=== PATIENT | female | born 1995 | race Caucasian/White ===

== ENCOUNTER 2017-06-08 | Emergency (ER) | END 2017-06-08 20:49 | disposition home or self-care (01) ==

== ENCOUNTER 2017-06-23 10:20 | Emergency (ER) | payer OTHER ==
[~2017-06-23] VITALS: Ht 177.8 cm; Wt 56.7 kg
[~2017-06-23 10:20] MED LIST: ALBU90OI INH; AMOCLA250S PO; AMOX500 PO; AMOX50SU PO; ATOM40; ATOM40 PO; AZIT200SU PO; AZIT250 PO; Amoxicillin500 MG PO; CIPRO500 MG PO; CODACEE120 PO; COMPAZINE10 MG PO; CRUTCH2 USE; Cheratussin AC118 ML PO; Cipro500 MG PO; DIPH25 PO; FLUO10 PO; HYDACE5 PO; HYDHCL25 PO; HYOS.125 SL; IBUP600 PO; LAVAP17G PO; LORA2 PO; METO10 PO; NEOPOLHCSU OT; Naprosyn500 MG PO; OMEPRAZOLE MAGN20 MG PO; ONDA4 PO; PENVK500 PO; PROC10 PO; PROM25 PO; Percocet 5-3251 EACH PO; RXCODACET PO; RXNEOPOLHC AS; TRAZ150T57 PO; Ultram50 MG PO; XULANE PATCH1 EACH TD; Zithromax250 MG PO; Zofran Odt4 MG SL; intuniv
== END 2017-06-23 12:50 | disposition home or self-care (01) ==
LOC: ER 10:20
DX: F41.9 Anxiety disorder, unspecified (principal); F17.200 Nicotine dependence, unspecified, uncomplicated
CPT/HCPCS: 96374; 96375; 96376; 99283; J1200; J1630

== ENCOUNTER 2017-09-28 09:40 | Emergency (ER) | payer OTHER ==
[~2017-09-28] VITALS: Ht 208.3 cm; Wt 54.4 kg
[2017-09-28] MEDS ORDERED: METR250 PO (09:57)
[2017-09-28 10:12] LABS: BASOPHILS ABSOLUTE AUTO 0.04 K/mm3 (0.00-0.23); BASOPHILS PERCENT AUTO 0 % (0-2); EOSINOPHILS ABSOLUTE AUTO 0.14 K/mm3 (0.00-0.68); EOSINOPHILS PERCENT AUTO 1 % (0-6); Hemoglobin 13.5 g/dL (11.5-16.0); IMMATURE GRAN ABSOLUTE AUTO 0.04 K/mm3 (0.00-0.10); IMMATURE GRAN PERCENT AUTO 0 % (0-1); LYMPHOCYTES ABSOLUTE AUTO 1.72 K/mm3 (0.84-5.20); LYMPHOCYTES PERCENT AUTO 16 % (21-46); MONOCYTES ABSOLUTE AUTO 0.47 K/mm3 (0.16-1.47); MONOCYTES PERCENT AUTO 4 % (4-13); Mean Corpuscular HGB 30.5 pg (26.0-34.0); Mean Corpuscular HGB Conc 33.8 g/dL (31.5-36.5); Mean Corpuscular Volume 91 fL (80-100); Mean Platelet Volume 10.1 fL (9.1-12.4); NEUTROPHILS ABSOLUTE AUTO 8.59 K/mm3 (1.96-9.15); NEUTROPHILS PERCENT AUTO 78 % (41-73); Platelet Count 337 K/mm3 (150-400); RDW Coefficient Variation 12.8 % (11.7-14.2); RDW Standard Deviation 42.5 fL (35.1-46.3); Red Blood Cell Count 4.42 M/mm3 (3.80-5.20)
[2017-09-28 10:15] LABS: Source, Urine Clean Catch
[2017-09-28 10:23] LABS: Bilirubin, Urine Neg (Neg); Blood, Urine 5+ (Neg); Glucose Qualitative, Urine Neg (Neg); Ketones, Urine 1+ (Neg); Leukocyte Esterase, Urine 2+ (Neg); Nitrite, Urine Neg (Neg); Protein, Urine 2+ (Neg); Urobilinogen, Urine NORM (Normal)
[2017-09-28 10:23] LABS: Alanine Aminotransfer (ALT/SGP 23 U/L (12-78); Albumin, Blood 4.1 g/dL (3.4-5.0); Albumin/Globulin Ratio 1.3 (0.8-1.8); Alk Phos 68 U/L (50-136); Anion Gap 11 mmol/L (6-16); Aspartate Aminotrans (AST/SGOT 17 U/L (12-37); Bilirubin, Total 0.4 mg/dL (0.1-1.0); Blood Urea Nitrogen 10 mg/dL (8-24); Bun/Creatinine Ratio 14.2 (12.0-20.0); CO2, Blood 22 mmol/L (21-32); Calcium, Blood 8.8 mg/dL (8.5-10.1); Chloride, Blood 109 mmol/L (98-108); Creatinine, Blood 0.71 mg/dL (0.40-1.00); Globulin, Blood 3.1 g/dL (2.2-4.0); Glomerular Filtration Rate >60 (60-); Glucose, Blood 157 mg/dL (70-99); Sodium, Blood 142 mmol/L (136-145); Total Protein, Blood 7.2 g/dL (6.4-8.2)
[2017-09-28 10:28] LABS: Acetaminophen, Random <2.0 ug/mL (10.0-30.0); Salicylate <1.7 mg/dL (2.8-20.0)
[2017-09-28 10:40] LABS: U Amphetamine Screen Not Detected; U Barbituate Screen Not Detected; U Benzodiazapine Screen Not Detected; U Buprenorphine Screen Not Detected; U Cannabinoids Screen DETECTED; U Cocaine Screen Not Detected; U Methadone Screen Not Detected; U Methamphetamine Screen Not Detected; U Opiates Screen Not Detected; U Oxycodone Screen Not Detected; U Phencyclidine Screen Not Detected; U Propoxyphene Screen Not Detected
[2017-09-28 10:44] LABS: Appearance, Urine Cloudy (Clear); Color, Urine Yellow (P-Yellow)
[2017-09-28 10:45] LABS: Bacteria Few /hpf; Mucus Light (0-Heavy); Red Blood Cells, Urine TNTC /hpf (0-2); Squamous Epithelial Cells Few /hpf (Few)
== END 2017-09-28 12:16 | disposition home or self-care (01) ==
LOC: ER 09:40
PROVIDERS: Emergency Medicine
DX: R11.2 Nausea with vomiting, unspecified (principal); E86.0 Dehydration; F41.9 Anxiety disorder, unspecified; E87.6 Hypokalemia; F17.200 Nicotine dependence, unspecified, uncomplicated; Z79.899 Other long term (current) drug therapy
CPT/HCPCS: 36415; 80053; 81001; 81025; 83690; 85025; 87086; 96361; 96374; 96375; 99283; G0480; J2060; J2405; J2765; J7030

== ENCOUNTER 2018-11-21 15:18 | Emergency (ER) | payer OTHER ==
[~2018-11-21] VITALS: Ht 170.2 cm; Wt 56.2 kg
[~2018-11-21 15:18] MED LIST changes: +METR250 PO
[2018-11-21 16:15] LABS: Source, Urine Clean Catch
[2018-11-21 16:17] LABS: Bilirubin, Urine Neg (Neg); Blood, Urine 3+ (Neg); Glucose Qualitative, Urine Neg (Neg); Ketones, Urine 4+ (Neg); Leukocyte Esterase, Urine Neg (Neg); Nitrite, Urine Neg (Neg); Protein, Urine 2+ (Neg); Specific Gravity, Urine 1.025 (1.003-1.022); Urobilinogen, Urine NORM (Normal)
[2018-11-21 16:45] LABS: U Cannabinoids Screen DETECTED
[2018-11-21 16:46] LABS: U Amphetamine Screen Not Detected; U Barbituate Screen Not Detected; U Benzodiazapine Screen Not Detected; U Buprenorphine Screen Not Detected; U Cocaine Screen Not Detected; U Methadone Screen Not Detected; U Methamphetamine Screen Not Detected; U Opiates Screen Not Detected; U Oxycodone Screen Not Detected; U Phencyclidine Screen Not Detected; U Propoxyphene Screen Not Detected
[2018-11-21 16:48] LABS: BASOPHILS ABSOLUTE AUTO 0.06 K/mm3 (0.00-0.23); BASOPHILS PERCENT AUTO 0 % (0-2); EOSINOPHILS ABSOLUTE AUTO 0.07 K/mm3 (0.00-0.68); EOSINOPHILS PERCENT AUTO 1 % (0-6); Hematocrit 38.7 % (33.0-51.0); Hemoglobin 13.3 g/dL (11.5-16.0); IMMATURE GRAN ABSOLUTE AUTO 0.04 K/mm3 (0.00-0.10); IMMATURE GRAN PERCENT AUTO 0 % (0-1); LYMPHOCYTES ABSOLUTE AUTO 2.06 K/mm3 (0.84-5.20); LYMPHOCYTES PERCENT AUTO 13 % (21-46); MONOCYTES PERCENT AUTO 4 % (4-13); Mean Corpuscular HGB 31.4 pg (26.0-34.0); Mean Corpuscular HGB Conc 34.4 g/dL (31.5-36.5); Mean Corpuscular Volume 92 fL (80-100); Mean Platelet Volume 10.9 fL (9.1-12.4); NEUTROPHILS PERCENT AUTO 82 % (41-73); Platelet Count 350 K/mm3 (150-400); RDW Coefficient Variation 12.4 % (11.7-14.2); Red Blood Cell Count 4.23 M/mm3 (3.80-5.20); White Blood Cell Count 15.33 K/mm3 (4.00-11.30)
[2018-11-21 17:06] LABS: Alanine Aminotransfer (ALT/SGP 18 U/L (12-78); Albumin/Globulin Ratio 1.1 (0.8-1.8); Alk Phos 50 U/L (50-136); Anion Gap 9 mmol/L (6-16); Aspartate Aminotrans (AST/SGOT 24 U/L (12-37); Bilirubin, Total 0.6 mg/dL (0.1-1.0); Blood Urea Nitrogen 9 mg/dL (8-24); Bun/Creatinine Ratio 15.6 (12.0-20.0); CO2, Blood 21 mmol/L (21-32); Calcium, Blood 9.4 mg/dL (8.5-10.1); Chloride, Blood 107 mmol/L (98-108); Creatinine, Blood 0.58 mg/dL (0.40-1.00); Globulin, Blood 3.6 g/dL (2.2-4.0); Glomerular Filtration Rate >60 (60-); Glucose, Blood 122 mg/dL (70-99); Potassium, Blood 3.7 mmol/L (3.5-5.5); Sodium, Blood 137 mmol/L (136-145); Total Protein, Blood 7.6 g/dL (6.4-8.2)
[2018-11-21 17:24] LABS: Appearance, Urine Hazy (Clear); Color, Urine Yellow (P-Yellow)
[2018-11-21 17:30] LABS: Beta HCG, Quantitative, Serum 46599 mIU/mL (0-3)
[2018-11-21 17:35] LABS: Squamous Epithelial Cells Mod /hpf (Few)
[2018-11-21 17:36] LABS: Bacteria Mod /hpf; Mucus Mod (0-Heavy)
[2019-02-01] MEDS ORDERED: ONDA4ODT (12:22)
== END 2018-11-21 19:07 | disposition home or self-care (01) ==
LOC: ER 15:18
PROVIDERS: Physician Assistant
DX: O99.341 Other mental disorders complicating pregnancy, first trimester (principal); F41.9 Anxiety disorder, unspecified; O99.89 Other specified diseases and conditions complicating pregnancy, childbirth and the puerperium; R10.30 Lower abdominal pain, unspecified; O99.331 Smoking (tobacco) complicating pregnancy, first trimester; F17.200 Nicotine dependence, unspecified, uncomplicated; Z3A.12 12 weeks gestation of pregnancy
CPT/HCPCS: 36415; 76801; 80053; 81001; 81025; 84702; 85025; 86900; 86901; 87077; 87086; 87186; 96372; 99283; 99284-25; A9270; J3230

== ENCOUNTER → 2018-12-24 | Outpatient (CLI) | payer OTHER ==
[~2018-12-24] MED LIST changes: +CEPH500 PO; +ONDA4ODT; +ONDA4ODT MM; +UNISOM25 MG PO
== END | disposition home or self-care (01) ==
LOC: LAB EV 09:08 → LAB SHORT 09:08
DX: J02.9 Acute pharyngitis, unspecified (principal)
CPT/HCPCS: 87081

== ENCOUNTER 2018-12-25 18:45 | Emergency (ER) | payer OTHER ==
[~2018-12-25] VITALS: Ht 170.2 cm; Wt 56.7 kg
[~2018-12-25 18:45] MED LIST changes: -CEPH500 PO; -ONDA4ODT; -ONDA4ODT MM; -UNISOM25 MG PO
[2018-12-25] MEDS ORDERED: UNISOM25 MG PO (18:53)
[2018-12-25] MEDS ORDERED: ONDA4ODT MM (18:53)
[2018-12-25 19:12] LABS: Source, Urine Clean Catch
[2018-12-25 19:14] LABS: Bilirubin, Urine Neg (Neg); Blood, Urine 4+ (Neg); Glucose Qualitative, Urine Neg (Neg); Ketones, Urine 4+ (Neg); Leukocyte Esterase, Urine 1+ (Neg); Nitrite, Urine Neg (Neg); Protein, Urine 2+ (Neg); Specific Gravity, Urine 1.025 (1.003-1.022); Urobilinogen, Urine NORM (Normal)
[2018-12-25 19:20] LABS: Appearance, Urine Clear (Clear); Color, Urine Yellow (P-Yellow)
[2018-12-25 19:22] LABS: Bacteria Many /hpf; Mucus Light (0-Heavy); Squamous Epithelial Cells Few /hpf (Few)
[2018-12-25 20:17] LABS: BASOPHILS ABSOLUTE AUTO 0.03 K/mm3 (0.00-0.23); BASOPHILS PERCENT AUTO 0 % (0-2); EOSINOPHILS ABSOLUTE AUTO 0.14 K/mm3 (0.00-0.68); EOSINOPHILS PERCENT AUTO 1 % (0-6); Hematocrit 33.1 % (33.0-51.0); Hemoglobin 10.8 g/dL (11.5-16.0); IMMATURE GRAN ABSOLUTE AUTO 0.07 K/mm3 (0.00-0.10); IMMATURE GRAN PERCENT AUTO 0 % (0-1); LYMPHOCYTES ABSOLUTE AUTO 0.97 K/mm3 (0.84-5.20); LYMPHOCYTES PERCENT AUTO 6 % (21-46); MONOCYTES ABSOLUTE AUTO 0.73 K/mm3 (0.16-1.47); MONOCYTES PERCENT AUTO 5 % (4-13); Mean Corpuscular HGB 30.9 pg (26.0-34.0); Mean Corpuscular HGB Conc 32.6 g/dL (31.5-36.5); Mean Corpuscular Volume 95 fL (80-100); Mean Platelet Volume 9.9 fL (9.1-12.4); NEUTROPHILS PERCENT AUTO 88 % (41-73); Platelet Count 273 K/mm3 (150-400); RDW Coefficient Variation 13.2 % (11.7-14.2); RDW Standard Deviation 45.1 fL (35.1-46.3); White Blood Cell Count 15.84 K/mm3 (4.00-11.30)
[2018-12-25 20:48] LABS: Alanine Aminotransfer (ALT/SGP 13 U/L (12-78); Albumin, Blood 3.2 g/dL (3.4-5.0); Albumin/Globulin Ratio 0.9 (0.8-1.8); Alk Phos 55 U/L (50-136); Anion Gap 10 mmol/L (6-16); Aspartate Aminotrans (AST/SGOT 9 U/L (12-37); Bilirubin, Total 0.5 mg/dL (0.1-1.0); Blood Urea Nitrogen 8 mg/dL (8-24); Bun/Creatinine Ratio 13.9 (12.0-20.0); CO2, Blood 21 mmol/L (21-32); Calcium, Blood 8.6 mg/dL (8.5-10.1); Chloride, Blood 106 mmol/L (98-108); Creatinine, Blood 0.58 mg/dL (0.40-1.00); Globulin, Blood 3.5 g/dL (2.2-4.0); Glomerular Filtration Rate >60 (60-); Glucose, Blood 82 mg/dL (70-99); Potassium, Blood 3.5 mmol/L (3.5-5.5); Sodium, Blood 137 mmol/L (136-145); Total Protein, Blood 6.7 g/dL (6.4-8.2)
[2018-12-25 21:04] LABS: Beta HCG, Quantitative, Serum 17384 mIU/mL (0-3)
[2018-12-25] MEDS ORDERED: CEPH500 PO (21:21)
[2019-02-01] MEDS ORDERED: ONDA4ODT (12:22)
== END 2018-12-25 21:55 | disposition home or self-care (01) ==
LOC: ER 18:45
PROVIDERS: Physician Assistant
DX: O23.42 Unspecified infection of urinary tract in pregnancy, second trimester (principal); Z87.891 Personal history of nicotine dependence; Z79.899 Other long term (current) drug therapy; Z3A.17 17 weeks gestation of pregnancy
CPT/HCPCS: 76815; 80053; 81001; 84702; 85025; 86900; 86901; 87077; 87086; 87186; 99284-25

== ENCOUNTER 2019-01-12 20:08 | Emergency (ER) | payer OTHER ==
[~2019-01-12] VITALS: Ht 170.2 cm; Wt 58.1 kg
[~2019-01-12 20:08] MED LIST changes: +CEPH500 PO; +ONDA4ODT MM; +UNISOM25 MG PO
[2019-01-12 21:18] LABS: BASOPHILS ABSOLUTE AUTO 0.08 K/mm3 (0.00-0.23); BASOPHILS PERCENT AUTO 1 % (0-2); EOSINOPHILS ABSOLUTE AUTO 0.23 K/mm3 (0.00-0.68); EOSINOPHILS PERCENT AUTO 2 % (0-6); Hematocrit 36.4 % (33.0-51.0); Hemoglobin 11.9 g/dL (11.5-16.0); IMMATURE GRAN ABSOLUTE AUTO 0.05 K/mm3 (0.00-0.10); IMMATURE GRAN PERCENT AUTO 0 % (0-1); LYMPHOCYTES ABSOLUTE AUTO 2.22 K/mm3 (0.84-5.20); LYMPHOCYTES PERCENT AUTO 18 % (21-46); MONOCYTES ABSOLUTE AUTO 0.68 K/mm3 (0.16-1.47); MONOCYTES PERCENT AUTO 5 % (4-13); Mean Corpuscular HGB 31.2 pg (26.0-34.0); Mean Corpuscular HGB Conc 32.7 g/dL (31.5-36.5); Mean Corpuscular Volume 95 fL (80-100); Mean Platelet Volume 10.1 fL (9.1-12.4); NEUTROPHILS ABSOLUTE AUTO 9.39 K/mm3 (1.96-9.15); NEUTROPHILS PERCENT AUTO 74 % (41-73); Platelet Count 327 K/mm3 (150-400); RDW Coefficient Variation 13.3 % (11.7-14.2); RDW Standard Deviation 46.9 fL (35.1-46.3); Red Blood Cell Count 3.82 M/mm3 (3.80-5.20); White Blood Cell Count 12.65 K/mm3 (4.00-11.30)
[2019-01-12 21:36] LABS: Source, Urine Clean Catch
[2019-01-12 21:38] LABS: Alanine Aminotransfer (ALT/SGP 17 U/L (12-78); Albumin, Blood 3.6 g/dL (3.4-5.0); Albumin/Globulin Ratio 0.9 (0.8-1.8); Alk Phos 63 U/L (50-136); Anion Gap 5 mmol/L (6-16); Aspartate Aminotrans (AST/SGOT 14 U/L (12-37); Bilirubin, Total 0.5 mg/dL (0.1-1.0); Blood Urea Nitrogen 8 mg/dL (8-24); Bun/Creatinine Ratio 13.6 (12.0-20.0); CO2, Blood 26 mmol/L (21-32); Calcium, Blood 8.7 mg/dL (8.5-10.1); Chloride, Blood 105 mmol/L (98-108); Creatinine, Blood 0.59 mg/dL (0.40-1.00); Globulin, Blood 3.8 g/dL (2.2-4.0); Glomerular Filtration Rate >60 (60-); Glucose, Blood 81 mg/dL (70-99); Potassium, Blood 3.1 mmol/L (3.5-5.5); Sodium, Blood 136 mmol/L (136-145); Total Protein, Blood 7.4 g/dL (6.4-8.2)
[2019-01-12 21:39] LABS: Appearance, Urine Clear (Clear); Bilirubin, Urine Neg (Neg); Blood, Urine 1+ (Neg); Color, Urine Amber (P-Yellow); Glucose Qualitative, Urine Neg (Neg); Ketones, Urine 1+ (Neg); Leukocyte Esterase, Urine 1+ (Neg); Nitrite, Urine Neg (Neg); Protein, Urine 2+ (Neg); Specific Gravity, Urine 1.025 (1.003-1.022); Urobilinogen, Urine 1+ (Normal)
[2019-01-12 21:48] LABS: Bacteria Many /hpf; Mucus Heavy ({null, 0-Heavy}); Red Blood Cells, Urine 0-2 /hpf (0-2); Squamous Epithelial Cells Few /hpf (Few)
[2019-02-01] MEDS ORDERED: ONDA4ODT (12:22)
== END 2019-01-13 00:17 | disposition home or self-care (01) ==
LOC: ER 20:08
PROVIDERS: Physician Assistant
DX: O99.89 Other specified diseases and conditions complicating pregnancy, childbirth and the puerperium (principal); R10.9 Unspecified abdominal pain; R55 Syncope and collapse; O99.342 Other mental disorders complicating pregnancy, second trimester; F41.9 Anxiety disorder, unspecified; F43.10 Post-traumatic stress disorder, unspecified; Z3A.20 20 weeks gestation of pregnancy; Z79.899 Other long term (current) drug therapy
CPT/HCPCS: 36415; 80053; 81001; 85025; 87086; 93005; 93010; 99284-25

== ENCOUNTER 2019-05-31 16:00 | Inpatient (IN) | payer OTHER ==
[~2019-05-31] VITALS: Ht 170.2 cm; Wt 67.7 kg
[~2019-05-31 16:00] MED LIST changes: +ONDA4ODT
[2019-05-31] MEDS ORDERED: ACETAMINOPHEN500 MG PO (16:47)
[2019-05-31 17:07] LABS: BASOPHILS ABSOLUTE AUTO 0.02 K/mm3 (0.00-0.23); BASOPHILS PERCENT AUTO 0 % (0-2); EOSINOPHILS ABSOLUTE AUTO 0.11 K/mm3 (0.00-0.68); EOSINOPHILS PERCENT AUTO 1 % (0-6); Hemoglobin 10.4 g/dL (11.5-16.0); IMMATURE GRAN ABSOLUTE AUTO 0.04 K/mm3 (0.00-0.10); IMMATURE GRAN PERCENT AUTO 0 % (0-1); LYMPHOCYTES ABSOLUTE AUTO 1.72 K/mm3 (0.84-5.20); LYMPHOCYTES PERCENT AUTO 16 % (21-46); MONOCYTES ABSOLUTE AUTO 0.73 K/mm3 (0.16-1.47); MONOCYTES PERCENT AUTO 7 % (4-13); Mean Corpuscular HGB 30.5 pg (26.0-34.0); Mean Corpuscular HGB Conc 33.5 g/dL (31.5-36.5); Mean Corpuscular Volume 91 fL (80-100); Mean Platelet Volume 10.1 fL (9.1-12.4); NEUTROPHILS ABSOLUTE AUTO 8.03 K/mm3 (1.96-9.15); NEUTROPHILS PERCENT AUTO 75 % (41-73); Platelet Count 311 K/mm3 (150-400); RDW Coefficient Variation 13.2 % (11.7-14.2); RDW Standard Deviation 43.5 fL (35.1-46.3); Red Blood Cell Count 3.41 M/mm3 (3.80-5.20); White Blood Cell Count 10.65 K/mm3 (4.00-11.30)
--- NOTE | 2019-06-01 07:15 | NUR ---
ASSUMED CARE. PT SLEEPING SOUNDLY.
--- NOTE | 2019-06-01 19:16 | NUR ---
REPORT TO LILA MYLES RN
--- NOTE | 2019-06-02 10:07 | NUR ---
PATIENT CRYING BECAUSE BF HAD TO LEAVE STATES HIGH ANXIETY, STATES ON MEDICATION AT HOME, SAT WITH PATIENT FOR SOMETIME STAYS STOMACH HURTING, HEATING PAD APPLIED, CALLED MOM AND WAS CRYING ON THE PHONE THAT PAIN WAS SO BAD BUT WHEN OFF PHONE PATIENT QUIETLY TEXTING ON PHONE, ENCORAGED TO DEEP BREATHE AND WE WOULD TALK TO DOCTOR ABOUT GOING BACK TO ANXIETY MEDICATION, WE ALSO DISCUSSED DEPRESSION AND RELAXATION TIPS
[2019-06-02 10:40] LABS: Hemoglobin 9.4 g/dL (11.5-16.0); Mean Corpuscular HGB 30.4 pg (26.0-34.0); Mean Corpuscular HGB Conc 33.6 g/dL (31.5-36.5); Mean Corpuscular Volume 91 fL (80-100); Platelet Count 276 K/mm3 (150-400); RDW Coefficient Variation 13.3 % (11.7-14.2); RDW Standard Deviation 43.8 fL (35.1-46.3); Red Blood Cell Count 3.09 M/mm3 (3.80-5.20); White Blood Cell Count 18.07 K/mm3 (4.00-11.30)
--- NOTE | 2019-06-02 13:18 | NUR ---
patient passed another clot about kishore dollar size, flat, fundus firm/-1, scant bleeding up to bathroom continue to monitor
--- NOTE | 2019-06-02 17:51 | NUR ---
CORE REFERRAL SENT
--- NOTE | 2019-06-03 07:41 | NUR ---
PT TEARFUL. C/O CRAMPING. PT CONCERNED BC NO BOWEL MOVMENT FOR A FEW DAYS. PRUNE JUICE GIVEN PER PT REQUEST AND COLACE GIVEN. PT REPORTS THIS IS MAKING HER FEEL ANXIOUS. ON THE PHONE WITH HER MOM. PT TRYING TO GET TO SHOWER.
--- NOTE | 2019-06-03 08:05 | NUR ---
PT UP TO SHOWER. REPORTS RELIEF OF PAIN IN SHOWER.
[2019-06-03] MEDS ORDERED: IBUP800 (09:29)
[2019-06-03] MEDS ORDERED: BUPAP 50 MG-301 EACH PO (09:29)
[2019-06-03] MEDS ORDERED: DOCU100 (09:30)
--- NOTE | 2019-06-03 10:32 | NUR ---
D/C INSTRUCTIONS DISCUSSED AND SIGNED. NO QUESTIONS OR CONCERNS AT THIS TIME. PT ODESSA SELF CARE. DEMONSTRATES ODESSA NB CARE AND HAS ASSISTANCE FROM S.O. AND HER MOM. PT TO CALL JUAN OR Ricardo CRAIN CNM IF ANY PROBLEMS OR CONCERNS ARISE. DISCUSSED AT LENGTH MENTAL WELLNESS
--- NOTE | 2019-06-03 10:41 | NUR ---
D/C HOME WITH BABY
== END 2019-06-03 10:40 | disposition home or self-care (01) | DRG 807 ==
LOC: OBS 16:00 → BC 16:05 → OBS 16:12 → BC 16:13
PROVIDERS: ADMIT Advanced Practice Midwife
PROC: 3E0P7VZ Introduction of Hormone into Female Reproductive, Via Natural or Artificial Opening (ICD-10-PCS; 2019-05-31)
PROC: 10E0XZZ Delivery of Products of Conception, External Approach (ICD-10-PCS; principal; 2019-06-01)
PROC: 3E033VJ Introduction of Other Hormone into Peripheral Vein, Percutaneous Approach (ICD-10-PCS; 2019-06-01)
PROC: 10907ZC Drainage of Amniotic Fluid, Therapeutic from Products of Conception, Via Natural or Artificial Opening (ICD-10-PCS; 2019-06-01)
PROC: 10H07YZ Insertion of Other Device into Products of Conception, Via Natural or Artificial Opening (ICD-10-PCS; 2019-06-01)
PROC: 0HQ9XZZ Repair Perineum Skin, External Approach (ICD-10-PCS; 2019-06-01)
PROC: 3E0R3BZ Introduction of Anesthetic Agent into Spinal Canal, Percutaneous Approach (ICD-10-PCS; 2019-06-01)
DX: O48.0 Post-term pregnancy (principal); Z37.0 Single live birth; Z3A.40 40 weeks gestation of pregnancy; O36.5930 Maternal care for other known or suspected poor fetal growth, third trimester, not applicable or unspecified; O70.0 First degree perineal laceration during delivery; O76 Abnormality in fetal heart rate and rhythm complicating labor and delivery
CPT/HCPCS: 36415; 51702; 85025; 85027; 86850; 86900; 86901; J1885; J2001; J2270; J2405; J2550; J2590; J3010; J7120

== ENCOUNTER 2020-11-14 09:00 | Emergency (ER) | payer OTHER ==
[~2020-11-14 09:00] MED LIST changes: +ACETAMINOPHEN500 MG PO; +BUPAP 50 MG-301 EACH PO; +DOCU100; +IBUP800
== END 2020-11-14 10:01 | disposition left against medical advice (07) ==
LOC: ER 09:00
DX: R10.9 Unspecified abdominal pain (principal); R11.10 Vomiting, unspecified; R20.0 Anesthesia of skin; Z53.29 Procedure and treatment not carried out because of patient's decision for other reasons

== ENCOUNTER 2021-02-09 14:02 | Emergency (ER) | payer OTHER ==
[~2021-02-09] VITALS: Ht 170.2 cm; Wt 56.7 kg
[2021-02-09 16:18] LABS: BASOPHILS ABSOLUTE AUTO 0.01 K/mm3 (0.00-0.23); BASOPHILS PERCENT AUTO 0 % (0-2); EOSINOPHILS ABSOLUTE AUTO 0.01 K/mm3 (0.00-0.68); EOSINOPHILS PERCENT AUTO 0 % (0-6); Hematocrit 38.8 % (33.0-51.0); Hemoglobin 13.5 g/dL (11.5-16.0); IMMATURE GRAN ABSOLUTE AUTO 0.04 K/mm3 (0.00-0.10); IMMATURE GRAN PERCENT AUTO 0 % (0-1); LYMPHOCYTES ABSOLUTE AUTO 0.88 K/mm3 (0.84-5.20); LYMPHOCYTES PERCENT AUTO 7 % (21-46); MONOCYTES ABSOLUTE AUTO 0.62 K/mm3 (0.16-1.47); MONOCYTES PERCENT AUTO 5 % (4-13); Mean Corpuscular HGB 30.5 pg (26.0-34.0); Mean Corpuscular HGB Conc 34.8 g/dL (31.5-36.5); Mean Corpuscular Volume 88 fL (80-100); Mean Platelet Volume 10.1 fL (9.1-12.4); NEUTROPHILS ABSOLUTE AUTO 10.47 K/mm3 (1.96-9.15); NEUTROPHILS PERCENT AUTO 87 % (41-73); Platelet Count 341 K/mm3 (150-400); RDW Coefficient Variation 12.9 % (11.7-14.2); RDW Standard Deviation 41.4 fL (35.1-46.3); Red Blood Cell Count 4.43 M/mm3 (3.80-5.20); White Blood Cell Count 12.03 K/mm3 (4.00-11.30)
[2021-02-09 16:39] LABS: Alanine Aminotransfer (ALT/SGP 33 U/L (12-78); Albumin, Blood 4.1 g/dL (3.4-5.0); Albumin/Globulin Ratio 1.2 (0.8-1.8); Alk Phos 65 U/L (50-136); Anion Gap 9 mmol/L (6-16); Aspartate Aminotrans (AST/SGOT 17 U/L (12-37); Bilirubin, Total 0.8 mg/dL (0.1-1.0); Blood Urea Nitrogen 20 mg/dL (8-24); Bun/Creatinine Ratio 23.9 (12.0-20.0); CO2, Blood 23 mmol/L (21-32); Calcium, Blood 8.8 mg/dL (8.5-10.1); Chloride, Blood 107 mmol/L (98-108); Creatinine, Blood 0.84 mg/dL (0.40-1.00); Globulin, Blood 3.5 g/dL (2.2-4.0); Glomerular Filtration Rate >60 (60-); Glucose, Blood 102 mg/dL (70-99); Potassium, Blood 2.7 mmol/L (3.5-5.5); Sodium, Blood 139 mmol/L (136-145); Total Protein, Blood 7.6 g/dL (6.4-8.2)
[2021-02-09] MEDS ORDERED: KLOR-CON 1010 ME2 PO (16:58)
[2021-02-09] MEDS ORDERED: PROM25 PO (16:58)
== END 2021-02-09 17:08 | disposition home or self-care (01) ==
LOC: ER 14:02
PROVIDERS: Emergency Medicine
DX: E87.6 Hypokalemia (principal); F41.0 Panic disorder [episodic paroxysmal anxiety]
CPT/HCPCS: 36415; 80053; 83690; 84703; 85025; 96374; 96375; 99284-25; A9270; J1630; J2060; J7030

== ENCOUNTER 2021-09-11 08:34 | Emergency (ER) | payer OTHER ==
[~2021-09-11] VITALS: Ht 167.6 cm; Wt 54.4 kg
[~2021-09-11 08:34] MED LIST changes: +KLOR-CON 1010 ME2 PO
[2021-09-11] MEDS ORDERED: ONDA4ODT MM (11:10)
== END 2021-09-11 11:33 | disposition home or self-care (01) ==
LOC: ER 08:34
DX: F41.9 Anxiety disorder, unspecified (principal); K29.20 Alcoholic gastritis without bleeding; F10.10 Alcohol abuse, uncomplicated; Z79.899 Other long term (current) drug therapy
CPT/HCPCS: J1630; J2060; J7030

== ENCOUNTER 2021-09-13 08:04 | Emergency (ER) | payer OTHER ==
[~2021-09-13] VITALS: Ht 170.2 cm; Wt 54.4 kg
[2021-09-13 09:05] LABS: Calcium, Ionized (POC) 1.03 mmol/L (1.10-1.46); Chloride (POC) 104 mmol/L (98-108); Creatinine (POC) 0.8 mg/dL (0.6-1.0); Glucose (ISTAT POC) 122 mg/dL (70-99); Hemoglobin (POC) 14.3 g/dL (12.0-16.0); Potassium (POC) 3.7 mmol/L (3.5-5.5); Sodium (POC) 137 mmol/L (135-148); Total CO2 (POC) 23 mmol/L (21-32)
== END 2021-09-13 10:36 | disposition home or self-care (01) ==
LOC: ER 08:04
PROVIDERS: Physician Assistant
DX: F41.9 Anxiety disorder, unspecified (principal); F10.11 Alcohol abuse, in remission; F12.90 Cannabis use, unspecified, uncomplicated; Z79.899 Other long term (current) drug therapy
CPT/HCPCS: 80047; 84703; 85014; J1200; J1630; J7030

== ENCOUNTER → 2022-05-23 | Outpatient (CLI) | payer OTHER ==
[2022-05-23 15:00] LABS: BASOPHILS ABSOLUTE AUTO 0.06 K/mm3 (0.00-0.23); BASOPHILS PERCENT AUTO 1 % (0-2); EOSINOPHILS ABSOLUTE AUTO 0.31 K/mm3 (0.00-0.68); EOSINOPHILS PERCENT AUTO 4 % (0-6); Hematocrit 41.2 % (33.0-51.0); Hemoglobin 13.9 g/dL (11.5-16.0); IMMATURE GRAN ABSOLUTE AUTO 0.01 K/mm3 (0.00-0.10); IMMATURE GRAN PERCENT AUTO 0 % (0-1); LYMPHOCYTES PERCENT AUTO 35 % (21-46); MONOCYTES ABSOLUTE AUTO 0.45 K/mm3 (0.16-1.47); MONOCYTES PERCENT AUTO 6 % (4-13); Mean Corpuscular HGB Conc 33.7 g/dL (31.5-36.5); Mean Corpuscular Volume 92 fL (80-100); Mean Platelet Volume 9.8 fL (9.1-12.4); NEUTROPHILS ABSOLUTE AUTO 3.73 K/mm3 (1.96-9.15); NEUTROPHILS PERCENT AUTO 53 % (41-73); Platelet Count 370 K/mm3 (150-400); RDW Coefficient Variation 12.7 % (11.7-14.2); RDW Standard Deviation 42.6 fL (35.1-46.3); Red Blood Cell Count 4.48 M/mm3 (3.80-5.20); White Blood Cell Count 7.06 K/mm3 (4.00-11.30)
[2022-05-23 15:11] LABS: Albumin, Blood 4.4 g/dL (3.4-5.0); Albumin/Globulin Ratio 1.2 (0.8-1.8); Bilirubin, Total 0.4 mg/dL (0.1-1.0); Bun/Creatinine Ratio 12.4 (12.0-20.0); Creatinine, Blood 1.13 mg/dL (0.40-1.00); Globulin, Blood 3.6 g/dL (2.2-4.0); Potassium, Blood 3.6 mmol/L (3.5-5.5)
[2022-05-24 09:40] LABS: Candida species (DNA Probe) Negative (NEGATIVE); G. vaginalis (DNA Probe) Negative (NEGATIVE); T. vaginalis (DNA Probe) Negative (NEGATIVE)
[2022-05-25 21:11] LABS: CHLAMYDIA BY NAA Negative (Negative); GONOCOCCUS BY NAA Negative (Negative); TRICH VAG BY NAA Negative (Negative)
== END | disposition home or self-care (01) ==
LOC: LAB 14:56 → LAB SHORT 14:56
PROVIDERS: Chiropractor
DX: R31.9 Hematuria, unspecified (principal); R10.2 Pelvic and perineal pain
CPT/HCPCS: 80053; 82550; 85025; 87480; 87510; 87660

== ENCOUNTER → 2022-06-05 | Outpatient (CLI) | payer OTHER ==
[2022-06-05 11:56] LABS: BASOPHILS ABSOLUTE AUTO 0.09 K/mm3 (0.00-0.23); BASOPHILS PERCENT AUTO 1 % (0-2); EOSINOPHILS ABSOLUTE AUTO 0.24 K/mm3 (0.00-0.68); EOSINOPHILS PERCENT AUTO 3 % (0-6); Hematocrit 41.2 % (33.0-51.0); Hemoglobin 13.9 g/dL (11.5-16.0); IMMATURE GRAN ABSOLUTE AUTO 0.01 K/mm3 (0.00-0.10); IMMATURE GRAN PERCENT AUTO 0 % (0-1); LYMPHOCYTES ABSOLUTE AUTO 2.16 K/mm3 (0.84-5.20); LYMPHOCYTES PERCENT AUTO 30 % (21-46); MONOCYTES ABSOLUTE AUTO 0.39 K/mm3 (0.16-1.47); MONOCYTES PERCENT AUTO 6 % (4-13); Mean Corpuscular HGB Conc 33.7 g/dL (31.5-36.5); Mean Corpuscular Volume 92 fL (80-100); Mean Platelet Volume 9.7 fL (9.1-12.4); NEUTROPHILS ABSOLUTE AUTO 4.22 K/mm3 (1.96-9.15); NEUTROPHILS PERCENT AUTO 59 % (41-73); Platelet Count 357 K/mm3 (150-400); RDW Coefficient Variation 12.7 % (11.7-14.2); Red Blood Cell Count 4.48 M/mm3 (3.80-5.20); White Blood Cell Count 7.11 K/mm3 (4.00-11.30)
[2022-06-05 12:11] LABS: Albumin, Blood 4.2 g/dL (3.4-5.0); Albumin/Globulin Ratio 1.2 (0.8-1.8); Bilirubin, Total 0.4 mg/dL (0.1-1.0); Bun/Creatinine Ratio 22.1 (12.0-20.0); Calcium, Blood 8.9 mg/dL (8.5-10.1); Creatinine, Blood 0.77 mg/dL (0.40-1.00); Globulin, Blood 3.5 g/dL (2.2-4.0); Potassium, Blood 4.1 mmol/L (3.5-5.5); Total Protein, Blood 7.7 g/dL (6.4-8.2)
== END | disposition home or self-care (01) ==
LOC: LAB SHORT 11:52
PROVIDERS: Emergency Medicine
DX: R10.31 Right lower quadrant pain (principal)
CPT/HCPCS: 80053; 85025

== ENCOUNTER → 2022-09-24 | Outpatient (CLI) | payer OTHER | END | disposition home or self-care (01) | LOC: LAB SHORT 15:08 → LAB 15:08 | DX: R30.0 Dysuria (principal) | CPT/HCPCS: 87077; 87086; 87186 ==

== ENCOUNTER → 2022-11-22 | Outpatient (CLI) | payer OTHER ==
[2022-11-22 15:09] LABS: Candida species (DNA Probe) Negative (NEGATIVE); G. vaginalis (DNA Probe) Positive (NEGATIVE); T. vaginalis (DNA Probe) Positive (NEGATIVE)
== END ==
LOC: LAB 11:10 → LAB SHORT 11:10
PROVIDERS: Nurse Practitioner
DX: N89.8 Other specified noninflammatory disorders of vagina (principal)
CPT/HCPCS: 87480; 87510; 87660

== ENCOUNTER → 2022-12-24 | Outpatient (CLI) | payer OTHER | LOC: LAB SHORT 16:12 → LAB 16:12 | DX: J02.9 Acute pharyngitis, unspecified (principal) | CPT/HCPCS: 87081 ==

== ENCOUNTER → 2022-12-28 | Outpatient (CLI) | payer OTHER ==
[2022-12-28 09:30] LABS: BASOPHILS ABSOLUTE AUTO 0.06 K/mm3 (0.00-0.23); BASOPHILS PERCENT AUTO 1 % (0-2); EOSINOPHILS ABSOLUTE AUTO 0.33 K/mm3 (0.00-0.68); EOSINOPHILS PERCENT AUTO 5 % (0-6); Hemoglobin 14.5 g/dL (11.5-16.0); IMMATURE GRAN ABSOLUTE AUTO 0.01 K/mm3 (0.00-0.10); IMMATURE GRAN PERCENT AUTO 0 % (0-1); LYMPHOCYTES ABSOLUTE AUTO 1.96 K/mm3 (0.84-5.20); LYMPHOCYTES PERCENT AUTO 27 % (21-46); MONOCYTES ABSOLUTE AUTO 0.35 K/mm3 (0.16-1.47); MONOCYTES PERCENT AUTO 5 % (4-13); Mean Corpuscular HGB 30.6 pg (26.0-34.0); Mean Corpuscular HGB Conc 33.7 g/dL (31.5-36.5); Mean Corpuscular Volume 91 fL (80-100); Mean Platelet Volume 9.8 fL (9.1-12.4); NEUTROPHILS ABSOLUTE AUTO 4.59 K/mm3 (1.96-9.15); NEUTROPHILS PERCENT AUTO 63 % (41-73); Platelet Count 298 K/mm3 (150-400); RDW Coefficient Variation 12.7 % (11.7-14.2); RDW Standard Deviation 42.1 fL (35.1-46.3); Red Blood Cell Count 4.74 M/mm3 (3.80-5.20)
[2022-12-28 10:57] LABS: Albumin, Blood 4.1 g/dL (3.4-5.0); Albumin/Globulin Ratio 1.1 (0.8-1.8); Bilirubin, Total 0.4 mg/dL (0.1-1.0); Bun/Creatinine Ratio 24.5 (12.0-20.0); Calcium, Blood 8.8 mg/dL (8.5-10.1); Creatinine, Blood 0.74 mg/dL (0.40-1.00); Globulin, Blood 3.6 g/dL (2.2-4.0); Total Protein, Blood 7.7 g/dL (6.4-8.2)
== END ==
LOC: LAB SHORT 09:25 → LAB 09:25
PROVIDERS: Emergency Medicine
DX: R10.30 Lower abdominal pain, unspecified (principal)
CPT/HCPCS: 80053; 85025

== ENCOUNTER 2023-11-06 20:45 | Emergency (ER) | payer OTHER ==
[~2023-11-06] VITALS: Ht 170.2 cm; Wt 68.0 kg
[~2023-11-06 20:45] MED LIST changes: +BENZ100A PO; +Prednisone20 MG PO
[2023-11-06 20:53] VITALS: BP 132/84
== END 2023-11-06 22:20 | disposition home or self-care (01) ==
LOC: ER 20:45
DX: Q18.1 Preauricular sinus and cyst (principal); F43.10 Post-traumatic stress disorder, unspecified
CPT/HCPCS: 99282

== ENCOUNTER → 2023-12-25 | Outpatient (CLI) | payer OTHER ==
[2023-12-25 18:08] LABS: Bacterial Vaginosis PCR Negative (NEGATIVE); Candida Group, PCR NOT DETECTED (NOT DETECT); Candida glabrata-krusei, PCR NOT DETECTED (NOT DETECT)
== END ==
LOC: LAB 14:12 → LAB SHORT 14:12
PROVIDERS: Nurse Practitioner
DX: N89.8 Other specified noninflammatory disorders of vagina (principal)
CPT/HCPCS: 87481; 87661; 87801

== ENCOUNTER 2024-02-11 15:07 | Emergency (ER) | payer OTHER ==
[~2024-02-11] VITALS: Ht 170.2 cm; Wt 68.0 kg
[2024-02-11 15:28] VITALS: BP 138/75
[2024-02-11 16:01] LABS: BASOPHILS ABSOLUTE AUTO 0.06 K/mm3 (0.00-0.23); BASOPHILS PERCENT AUTO 1 % (0-2); EOSINOPHILS ABSOLUTE AUTO 0.22 K/mm3 (0.00-0.68); EOSINOPHILS PERCENT AUTO 3 % (0-6); Hematocrit 39.3 % (33.0-51.0); Hemoglobin 13.2 g/dL (11.5-16.0); IMMATURE GRAN ABSOLUTE AUTO 0.01 K/mm3 (0.00-0.10); IMMATURE GRAN PERCENT AUTO 0 % (0-1); LYMPHOCYTES PERCENT AUTO 35 % (21-46); MONOCYTES ABSOLUTE AUTO 0.43 K/mm3 (0.16-1.47); MONOCYTES PERCENT AUTO 6 % (4-13); Mean Corpuscular HGB 30.8 pg (26.0-34.0); Mean Corpuscular HGB Conc 33.6 g/dL (31.5-36.5); Mean Corpuscular Volume 92 fL (80-100); Mean Platelet Volume 10.1 fL (9.1-12.4); NEUTROPHILS ABSOLUTE AUTO 3.76 K/mm3 (1.96-9.15); NEUTROPHILS PERCENT AUTO 55 % (41-73); Platelet Count 362 K/mm3 (150-400); RDW Coefficient Variation 12.1 % (11.7-14.2); Red Blood Cell Count 4.28 M/mm3 (3.80-5.20); White Blood Cell Count 6.88 K/mm3 (4.00-11.30)
[2024-02-11 16:25] LABS: Albumin, Blood 3.9 g/dL (3.4-5.0); Albumin/Globulin Ratio 1.1 (0.8-1.8); Bilirubin, Total 0.4 mg/dL (0.1-1.0); Bun/Creatinine Ratio 17.4 (12.0-20.0); Calcium, Blood 8.5 mg/dL (8.5-10.1); Creatinine, Blood 0.63 mg/dL (0.40-1.00); Globulin, Blood 3.5 g/dL (2.2-4.0); Potassium, Blood 3.6 mmol/L (3.5-5.5); Total Protein, Blood 7.4 g/dL (6.4-8.2)
== END 2024-02-11 22:15 | disposition left against medical advice (07) ==
LOC: ER 15:07
PROVIDERS: Student in an Organized Health Care Education/Training Program
DX: N93.9 Abnormal uterine and vaginal bleeding, unspecified (principal); R10.9 Unspecified abdominal pain; Z53.21 Procedure and treatment not carried out due to patient leaving prior to being seen by health care provider
CPT/HCPCS: 76801; 76817; 80053; 84702; 84703; 85025; 99282-25

== ENCOUNTER 2024-02-12 13:23 | Emergency (ER) | payer OTHER ==
[~2024-02-12] VITALS: Ht 170.2 cm; Wt 68.0 kg
[2024-02-12 13:27] VITALS: BP 131/89
== END 2024-02-12 14:46 | disposition home or self-care (01) ==
LOC: ER 13:23
DX: O20.0 Threatened abortion (principal); Z3A.00 Weeks of gestation of pregnancy not specified
CPT/HCPCS: 84702; 86900; 86901; 99282

== ENCOUNTER → 2024-03-10 | Outpatient (CLI) | payer OTHER | END | disposition home or self-care (01) | LOC: LAB 16:17 → LAB SHORT 16:17 | DX: L73.9 Follicular disorder, unspecified (principal) | CPT/HCPCS: 87070; 87077; 87147; 87186; 87205 ==

== ENCOUNTER → 2024-05-19 | Outpatient (CLI) | payer OTHER ==
[~2024-05-19] MED LIST changes: +AMOX875 PO
== END | disposition home or self-care (01) ==
LOC: LAB 16:50 → LAB SHORT 16:50
DX: J02.9 Acute pharyngitis, unspecified (principal)
CPT/HCPCS: 87081

== ENCOUNTER 2024-06-21 09:54 | Emergency (ER) | payer OTHER ==
[~2024-06-21] VITALS: Ht 170.2 cm; Wt 65.8 kg
[2024-06-21 10:12] VITALS: BP 128/87
[2024-06-21 11:25] LABS: Influenza A, PCR NEGATIVE (NEGATIVE); Influenza B, PCR NEGATIVE (NEGATIVE); Resp Syncytial Virus, PCR NEGATIVE (NEGATIVE); SARS-Cov-2 (COVID-19) PCR, MMC NEGATIVE (NEGATIVE)
[2024-06-21] MEDS ORDERED: AMOCLA875 PO (12:11)
== END 2024-06-21 12:11 | disposition home or self-care (01) ==
LOC: ER 09:54
PROVIDERS: Student in an Organized Health Care Education/Training Program
DX: J02.8 Acute pharyngitis due to other specified organisms (principal); H66.91 Otitis media, unspecified, right ear
CPT/HCPCS: 0241U; 36415; 86308; 87081; 87430; 99283

== ENCOUNTER 2024-07-01 08:01 | Emergency (ER) | payer OTHER ==
[~2024-07-01] VITALS: Ht 170.2 cm; Wt 67.1 kg
[~2024-07-01 08:01] MED LIST changes: +AMOCLA875 PO
[2024-07-01 08:49] LABS: Source, Urine Clean Catch
[2024-07-01 09:02] LABS: Appearance, Urine Hazy (Clear); Bilirubin, Urine Neg (Neg); Blood, Urine 4+ (Neg); Color, Urine Yellow (P-Yellow); Glucose Qualitative, Urine Neg (Neg); Ketones, Urine Neg (Neg); Leukocyte Esterase, Urine 1+ (Neg); Nitrite, Urine Neg (Neg); Protein, Urine 1+ (Neg); Specific Gravity, Urine 1.025 (1.003-1.022); Urobilinogen, Urine NORM (Normal)
[2024-07-01 09:07] LABS: BASOPHILS ABSOLUTE AUTO 0.06 K/mm3 (0.00-0.23); BASOPHILS PERCENT AUTO 1 % (0-2); EOSINOPHILS ABSOLUTE AUTO 0.15 K/mm3 (0.00-0.68); EOSINOPHILS PERCENT AUTO 3 % (0-6); Hematocrit 41.9 % (33.0-51.0); Hemoglobin 14.6 g/dL (11.5-16.0); IMMATURE GRAN ABSOLUTE AUTO 0.02 K/mm3 (0.00-0.10); IMMATURE GRAN PERCENT AUTO 0 % (0-1); LYMPHOCYTES ABSOLUTE AUTO 1.23 K/mm3 (0.84-5.20); LYMPHOCYTES PERCENT AUTO 23 % (21-46); MONOCYTES ABSOLUTE AUTO 0.49 K/mm3 (0.16-1.47); MONOCYTES PERCENT AUTO 9 % (4-13); Mean Corpuscular HGB 30.7 pg (26.0-34.0); Mean Corpuscular HGB Conc 34.8 g/dL (31.5-36.5); Mean Corpuscular Volume 88 fL (80-100); Mean Platelet Volume 10.1 fL (9.1-12.4); NEUTROPHILS PERCENT AUTO 64 % (41-73); Platelet Count 285 K/mm3 (150-400); RDW Coefficient Variation 12.4 % (11.7-14.2); RDW Standard Deviation 40.1 fL (35.1-46.3); Red Blood Cell Count 4.76 M/mm3 (3.80-5.20); White Blood Cell Count 5.45 K/mm3 (4.00-11.30)
[2024-07-01 09:19] LABS: Bacteria Many /hpf; Mucus Heavy (0-Heavy); Squamous Epithelial Cells Many /hpf (Few)
[2024-07-01 09:20] LABS: Amorphous Light (0-Heavy)
[2024-07-01 09:21] LABS: Transitional Epithelial Cells Rare /hpf (0-Rare)
[2024-07-01 09:23] LABS: Hyaline Casts 0-2 /lpf (0-2)
[2024-07-01 09:26] LABS: Alanine Aminotransfer (ALT/SGP 20 U/L (12-78); Albumin/Globulin Ratio 1.1 (0.8-1.8); Alk Phos 67 U/L (50-136); Anion Gap 9 mmol/L (3-11); Aspartate Aminotrans (AST/SGOT 14 U/L (12-37); Beta HCG, Quantitative, Serum <1 mIU/mL (0-3); Bilirubin, Total 0.6 mg/dL (0.1-1.0); Blood Urea Nitrogen 14 mg/dL (8-24); Bun/Creatinine Ratio 16.3 (12.0-20.0); CO2, Blood 24 mmol/L (21-32); Calcium, Blood 8.2 mg/dL (8.5-10.1); Chloride, Blood 106 mmol/L (98-108); Creatinine, Blood 0.86 mg/dL (0.40-1.00); Globulin, Blood 3.6 g/dL (2.2-4.0); Glomerular Filtration Rate 94 (60-); Glucose, Blood 88 mg/dL (70-99); Potassium, Blood 3.6 mmol/L (3.5-5.5); Sodium, Blood 135 mmol/L (136-145); Total Protein, Blood 7.6 g/dL (6.4-8.2)
[2024-07-01 11:13] VITALS: BP 120/77
[2024-07-01 12:30] LABS: Bacterial Vaginosis PCR Negative (NEGATIVE); Candida Group, PCR NOT DETECTED (NOT DETECT); Candida glabrata-krusei, PCR NOT DETECTED (NOT DETECT)
== END 2024-07-01 11:15 | disposition home or self-care (01) ==
LOC: ER 08:01
PROVIDERS: Student in an Organized Health Care Education/Training Program
DX: R10.2 Pelvic and perineal pain (principal); Z87.42 Personal history of other diseases of the female genital tract; F43.10 Post-traumatic stress disorder, unspecified
CPT/HCPCS: 76830; 76856; 80053; 81001; 81515; 83690; 84702; 85025; 87086; 99284-25

== ENCOUNTER 2024-09-10 20:36 | Emergency (ER) | payer OTHER ==
[~2024-09-10] VITALS: Ht 170.2 cm; Wt 65.8 kg
[2024-09-10 20:50] VITALS: BP 132/75
[2024-09-10 22:13] LABS: CORONAVIRUS COVID-19 AG Negative (NEGATIVE); INFLUENZA A AG Negative (NEGATIVE); INFLUENZA B AG Negative (NEGATIVE)
== END 2024-09-10 21:13 | disposition left against medical advice (07) ==
LOC: ER 20:36
PROVIDERS: Emergency Medicine
DX: Z11.52 Encounter for screening for COVID-19 (principal); R05.9 Cough, unspecified; Z53.21 Procedure and treatment not carried out due to patient leaving prior to being seen by health care provider
CPT/HCPCS: 87428-QW

== ENCOUNTER → 2024-09-16 | Outpatient (CLI) | payer OTHER ==
[2024-09-16 15:10] LABS: Candida glabrata-krusei, PCR NOT DETECTED (NOT DETECT)
[2024-09-16 15:11] LABS: Bacterial Vaginosis PCR Positive (NEGATIVE); Candida Group, PCR DETECTED (NOT DETECT)
[2024-09-16 15:39] LABS: Chlamydia Trachomatis Vaginal NOT DETECTED (NOT DETECT); Neisseria Gonorrhoea Vaginal NOT DETECTED (NOT DETECT)
== END ==
LOC: LAB 09:13 → LAB SHORT 09:13
PROVIDERS: Nurse Practitioner
DX: N89.8 Other specified noninflammatory disorders of vagina (principal)
CPT/HCPCS: 81515; 87491; 87591

== ENCOUNTER → 2024-11-09 | Outpatient (CLI) | payer OTHER ==
[2024-11-09 21:44] LABS: Candida Group, PCR NOT DETECTED (NOT DETECT); Candida glabrata-krusei, PCR NOT DETECTED (NOT DETECT)
[2024-11-09 22:18] LABS: Bacterial Vaginosis PCR Positive (NEGATIVE)
== END ==
LOC: LAB SHORT 19:14 → LAB 19:14
PROVIDERS: Student in an Organized Health Care Education/Training Program
DX: N89.8 Other specified noninflammatory disorders of vagina (principal)
CPT/HCPCS: 81515; 87086

== ENCOUNTER 2025-01-26 18:18 | Emergency (ER) | payer OTHER ==
[~2025-01-26] VITALS: Ht 170.2 cm; Wt 72.6 kg
[2025-01-26 18:34] VITALS: BP 125/79
[2025-01-26] MEDS ORDERED: Ketorolac Tromethamine 15mg Vial IM ONE (19:30)
[2025-01-26] MEDS ORDERED: RX Prepack 2 Tabs Ondansetron ODT 4MG UD ONE ×2 (19:30→20:50)
[2025-01-26] MEDS ORDERED: ONDA4ODT MM (20:48)
== END 2025-01-26 20:54 | disposition home or self-care (01) ==
LOC: ER 18:18
DX: S00.01XA Abrasion of scalp, initial encounter (principal); R11.0 Nausea; Z59.89 Other problems related to housing and economic circumstances; W22.8XXA Striking against or struck by other objects, initial encounter
CPT/HCPCS: 81025; 99283; A9270; J1885

== ENCOUNTER → 2025-03-01 | Outpatient (CLI) | payer OTHER ==
[~2025-03-01] MED LIST changes: +LIDO700A20 TOP; +TIZA4 PO
== END ==
LOC: LAB 15:28 → LAB SHORT 15:28
DX: H60.391 Other infective otitis externa, right ear (principal)
CPT/HCPCS: 87070; 87077; 87186; 87205

== ENCOUNTER 2025-03-02 12:46 | Emergency (ER) | payer OTHER ==
[~2025-03-02] VITALS: Ht 170.2 cm; Wt 76.0 kg
[~2025-03-02 12:46] MED LIST changes: -LIDO700A20 TOP; -TIZA4 PO
[2025-03-02 13:24] VITALS: BP 131/72
[2025-03-02] MEDS ORDERED: Lidocaine 4% 1 Patch TOP ONE (13:30)
[2025-03-02] MEDS ORDERED: Ketorolac Tromethamine 30mg Vial IM ONE (14:15)
[2025-03-02] MEDS ORDERED: TIZA4 PO (15:33)
[2025-03-02] MEDS ORDERED: LIDO700A20 TOP (15:33)
== END 2025-03-02 15:31 | disposition home or self-care (01) ==
LOC: ER 12:46
DX: M43.6 Torticollis (principal); Z59.89 Other problems related to housing and economic circumstances
CPT/HCPCS: 72040; 72070; 96372; 99283-25; A9270; J1885

== ENCOUNTER → 2025-03-04 | Outpatient (CLI) | payer OTHER ==
[~2025-03-04] MED LIST changes: +LIDO700A20 TOP; +TIZA4 PO
[2025-03-04 14:57] LABS: Bacterial Vaginosis PCR Negative (NEGATIVE); Candida glabrata-krusei, PCR NOT DETECTED (NOT DETECT)
[2025-03-04 15:02] LABS: Candida Group, PCR DETECTED (NOT DETECT)
== END ==
LOC: LAB 11:47 → LAB SHORT 11:47
PROVIDERS: Nurse Practitioner Family
DX: N89.8 Other specified noninflammatory disorders of vagina (principal)
CPT/HCPCS: 81515; 87086

== ENCOUNTER → 2025-03-17 | Outpatient (CLI) | payer OTHER ==
[2025-03-17 17:18] LABS: Bacterial Vaginosis PCR Negative (NEGATIVE); Candida Group, PCR NOT DETECTED (NOT DETECT); Candida glabrata-krusei, PCR NOT DETECTED (NOT DETECT)
[2025-03-17 20:25] LABS: Follicle Stimulating Hormone 7.3 mIU/ml; Thyroid Stimulating Hormone 0.884 uIU/mL (0.360-4.800)
[2025-03-19 01:27] LABS: ESTRADIOL BY IMMUNOASSAY 44.5 pg/mL
[2025-03-21 12:37] LABS: TESTOSTERONE, FREE MASS SPEC 5.1 pg/mL (0.8-7.4)
== END | disposition home or self-care (01) ==
LOC: LAB SHORT 11:50 → LAB 11:50
PROVIDERS: Nurse Practitioner Family
DX: L68.0 Hirsutism (principal); B37.31 Acute candidiasis of vulva and vagina
CPT/HCPCS: 81515; 82670; 83001; 83036; 84402; 84443; 84703